=== PATIENT | male | born 1995 | race American Indian/Alaskan Native ===

== ENCOUNTER 2021-04-07 23:24 | Emergency (ER) | payer OTHER ==
[2021-04-08 03:47] VITALS: BP 143/77
--- NOTE | 2021-04-08 07:39 | Emergency Department Report ---
ED Eye Problem HPI - General Chief complaint: Eye Problems Stated complaint: CHEMICAL IN EYES/HEADACHE Time Seen by Provider: 04/08/21 07:39 Source: patient Mode of arrival: Ambulatory Limitations: No Limitations - History of Present Illness Initial comments: 26 yo AA male comes to ER after having been at work at [employer]. 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 The water contained cleaning solution that is used to wipe the table stone. He is unable to provide any more information about what exactly was in the water. I have seen the patient about 12 hours after arrival in the ER and he has mild conjunctival irritation. EOMs are intact. Visual acuity noted normal by nurses. There is no globe injury. Patient denies any pain or other injury. Immediately after the incident his eyes were flushed with water. At the time of my assessment patient is asleep in [employer] and states that his job is making him get checked. chief complaint: eye redness -: Sudden Onset Description: gradual Place: home If Injury: none Consistency: intermittent Treatments Prior to Arrival: other (eyes flushed) - Related Data Patient Tetanus UTD: Yes Previous Rx's Medication Instructions Recorded Last Taken Type Ciprofloxacin HCl/Dexameth 2 drop OU BID 5 Days #1 each 04/08/21 Unknown Rx [Ciprodex Otic Suspension] Allergies Allergy/AdvReac Type Severity Reaction Status Date / Time No Known Allergies Allergy Unverified 04/08/21 03:46 ED Review of Systems ROS: Stated complaint: CHEMICAL IN EYES/HEADACHE Other details as noted in HPI Comment: All other systems reviewed and negative ED Past Medical Hx - Past Medical History Previous Medical History?: No - Surgical History Past Surgical History?: No - Family History Family history: no significant - Social History Smoking Status: Never Smoker Substance Use Type: Alcohol - Medications Home Medications: Home Medications Medication Instructions Recorded Confirmed Last Taken Type Ciprofloxacin HCl/Dexameth 2 drop OU BID 5 Days #1 each 04/08/21 Unknown Rx [Ciprodex Otic Suspension] ED Physical Exam - General Limitations: No Limitations General appearance: alert, in no apparent distress - Head Head exam: Present: atraumatic, normocephalic - Eye Eye exam: Present: normal appearance - ENT ENT exam: Present: mucous membranes moist - Neck Neck exam: Present: normal inspection - Respiratory Respiratory exam: Present: normal lung sounds bilaterally. Absent: respiratory distress - Cardiovascular Cardiovascular Exam: Present: regular rate, normal rhythm. Absent: systolic murmur, diastolic murmur, rubs, gallop - GI/Abdominal GI/Abdominal exam: Present: soft, normal bowel sounds - Rectal Rectal exam: Present: deferred - Extremities Exam Extremities exam: Present: normal inspection - Back Exam Back exam: Present: normal inspection - Neurological Exam Neurological exam: Present: alert, oriented X3 - Psychiatric Psychiatric exam: Present: normal affect, normal mood - Skin Skin exam: Present: warm, dry, intact, normal color. Absent: rash ED Course Vital Signs 04/08/21 03:45 Temperature 99.0 F Pulse Rate 76 Respiratory 16 Rate Blood Pressure 143/77 O2 Sat by Pulse 100 Oximetry ED Medical Decision Making - Medical Decision Making Vital Signs 04/08/21 03:45 Temperature 99.0 F Pulse Rate 76 Respiratory 16 Rate Blood Pressure 143/77 O2 Sat by Pulse 100 Oximetry mild conjuctivitis to b eyes eye stained no uptake of fluors. bilateral VA noted normal per RN charting exam otherwise normal dc home with work comp and eye md follow up pt verbalizes understaning of plan of care - Differential Diagnosis irritation sp chemical exposure at work Critical care attestation.: If time is entered above; I have spent that time in minutes in the direct care of this critically ill patient, excluding procedure time. ED Disposition Clinical Impression: Eye inflammation, Chemical conjunctivitis Disposition: DC-01 TO HOME OR SELFCARE Is pt being admited?: No Does the pt Need Aspirin: No Condition: Stable Instructions: Chemical Conjunctivitis, Adult, [id number] Additional Instructions: warm compresses to eye med as ordered today tylenol or motrin for pain follow up with your work comp MD per hospital policy Prescriptions: Ciprofloxacin HCl/Dexameth [Ciprodex Otic Suspension] 2 drop OU BID 5 Days #1 each Referrals: MAXIMILIANO GEORGE MD [Staff Physician] - 3-5 Days Forms: Work/School Release Form(ED) Time of Disposition: 08:34
[2021-04-08] MEDS ORDERED: FLUORESCEIN 1 MG STRIP OP ONE (07:40)
[2021-04-08] MEDS ORDERED: ACETAMINOPHEN 325 MG TAB PO STA (07:40)
[2021-04-08] MEDS ORDERED: TETRACAINE 0.5% OPHTH SOLN 4ML OU ONE (07:40)
[2021-04-08] MEDS ORDERED: ERYTHROMYCIN 5 MG/1 GM OPHTH OINT OU STA (07:40)
== END 2021-04-08 08:30 | disposition home or self-care (01) ==
LOC: ED 23:24
DX: H10.213 Acute toxic conjunctivitis, bilateral (principal); H57.89 Other specified disorders of eye and adnexa; Z72.89 Other problems related to lifestyle
CPT/HCPCS: 99282